=== PATIENT | female | born 1940 | race Caucasian/White ===

== ENCOUNTER 2018-01-16 21:45 | Outpatient (CLI) | payer MEDICARE | END 2018-01-16 21:46 | disposition critical access hospital (66) | LOC: EMS 21:45 | PROVIDERS: ATTEND Surgery | DX: M25.562 Pain in left knee (principal); M25.561 Pain in right knee; R53.1 Weakness; W18.39XA Other fall on same level, initial encounter; Y92.009 Unspecified place in unspecified non-institutional (private) residence as the place of occurrence of the external cause | CPT/HCPCS: A0425; A0429 ==

== ENCOUNTER 2018-01-16 21:53 | Emergency (ER) | payer MEDICARE ==
--- NOTE | 2018-01-16 23:15 | XRAY Report ---
Procedure Date: 01/16/2018 Accession Number: [id number] / [id number] Procedure: XR - Knee 2 View BILAT CPT Code: FULL RESULT: EXAMS: 1. Right Knee Radiography 2. Left Knee Radiography EXAM DATE:01/16/2018 10:30 PM. CLINICAL HISTORY:Fall, knee pain. COMPARISON: KNEE 3 VIEW RT 06/09/2015. TECHNIQUE: 2 views each. FINDINGS: Right Knee: Bones: Normal. No fractures or bone lesions. Joints: Moderate narrowing of the patellofemoral and medial joint compartments. There is associated marginal spurring. No joint effusion. Soft Tissues: Normal. No soft tissue swelling. Left Knee: Bones: Normal. No fractures or bone lesions. Joints: Mild patellofemoral and medial compartment joint space narrowing. Normal alignment and no joint effusion. Soft Tissues: Normal. No soft tissue swelling. IMPRESSION: 1. No acute bony abnormality. 2. Moderate right and mild left knee osteoarthritis. [facility]
--- NOTE | 2018-01-16 23:27 | CT Report ---
Procedure Date: 01/16/2018 Accession Number: [id number] / [id number] Procedure: CT - Head W/O CPT Code: FULL RESULT: EXAM: CT HEAD EXAM DATE: 01/16/2018. CLINICAL HISTORY: Fall, on aspirin,. COMPARISON: Head CT 01/01/2016. TECHNIQUE: Multiaxial CT images were obtained from the foramen magnum to the vertex. Reformats: Coronal. IV contrast: None. In accordance with CT protocol optimization, one or more of the following dose reduction techniques were utilized for this exam: automated exposure control, adjustment of mA and/or KV based on patient size, or use of iterative reconstructive technique. FINDINGS: Parenchyma: No intraparenchymal hemorrhage. No evidence of mass, midline shift, or CT findings of acute infarction. Weathers-white differentiation is distinct. Diffuse chronic microangiopathic white matter changes are evident. Extraaxial Spaces: Normal for age. No subdural or epidural collections identified. Ventricles: The ventricles and cortical sulci are enlarged, consistent with age-related tissue loss. Sinuses and orbits: Imaged paranasal sinuses, orbits, and mastoids show no significant abnormality. Bones: No evidence of fracture or calvarial defect. Other: None. IMPRESSION: Generalized age-related cortical atrophic changes without evidence of acute intracranial abnormality. [facility]
--- NOTE | 2018-01-16 23:35 | ED Physician Documentation ---
PD HPI Fall - Stated complaint Stated Complaint: GLF - Chief complaint Chief Complaint: Trauma Hd/Nk - History obtained from History obtained from: Patient, EMS - History of Present Illness Mechanism of injury: Tripped Fall distance: Standing position Where injury occurred: Home Timing - onset: Today Injury(ies) location: Head, Left Uppper Extremity, Right Lower Extremity Associated symptoms: No: LOC, AMS Similar symptoms before: No diagnosis Recently seen: Not recently seen - Additional information Additional information: Patient is a 77 year old female who is presenting to the emergency department after falling. patient states that she was in her kitchen when she feel foward on her knees and hit her head (patient is on aspirin). Patient states that she has bad knees and could not get herself up. patient was able to sit on the ground and wait for her son in law to get home. patient is complaining of bilateral knee pain. 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 HEENT: Tonsil/Adenoidectomy - Present Medications Home Medications: Ambulatory Orders Medication Instructions Recorded Confirmed Gemfibrozil [Lopid] 600 mg PO BIDAC 06/09/15 01/01/16 Glipizide 10 mg PO BID 06/09/15 01/01/16 Insulin Glargine,Hum.rec.anlog 21 unit SQ ACHS 06/09/15 01/01/16 [Lantus] Lisinopril 20 mg PO BID 06/09/15 01/01/16 Metoprolol Tartrate 50 mg PO BID 06/09/15 01/01/16 amLODIPine [Norvasc] 10 mg PO DAILY 06/09/15 01/01/16 hydroCHLOROthiazide 12.5 mg PO DAILY 06/09/15 01/01/16 [Hydrochlorothiazide] metFORMIN [Glucophage] 1,000 mg PO BIDWM 06/09/15 01/01/16 oxyCODONE [Roxicodone] 5 mg PO Q4-6H #20 tablet 06/09/15 01/01/16 Nitrofurantoin [Macrobid] 100 mg PO BID #10 capsule 12/30/15 01/01/16 - Allergies Allergies/Adverse Reactions: Allergies Allergy/AdvReac Type Severity Reaction Status Date / Time hops Allergy Unknown Verified 01/16/18 22:13 Penicillins Allergy Unknown Verified 01/16/18 22:13 - Social History Does the pt smoke?: No Smoking Status: Never smoker Does the pt drink ETOH?: No Does the pt have substance abuse?: No - Immunizations Immunizations are current?: No Immunizations: TDAP >10years/unknown - POLST Patient has POLST: No PD ED PE NORMAL - Vitals Vital signs reviewed: Yes - General General: Alert and oriented X 3, No acute distress - Cardiac Cardiac: RRR - Respiratory Respiratory: No respiratory distress - Abdomen Abdomen: Soft - Derm Derm: Normal color - Neuro Neuro: Alert and oriented X 3, 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-12 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, No motor deficit, Normal speech Eye Opening: Spontaneous Motor: Obeys Commands Verbal: Oriented GCS Score: 15 PD ED PE EXPANDED - HEENT HEENT: Head injury (small hematoma on right anterior forehead) - Extremities Extremities: Right knee, Left knee (bilateral knee pain, no ecchymosis no swelling) Results - Vitals Vitals: Vital Signs - 24 hr 01/16/18 21:52 Temperature 36.7 C Heart Rate 80 Respiratory 18 Rate Blood Pressure 160/92 H O2 Saturation 95 Oxygen O2 Source Room air - Rads (name of study) ct head Radiology: Final report received (no acute intracranial pathology) bilateral knees Radiology: Final report received (no acute fracture or dislocation) PD MEDICAL DECISION MAKING - ED course Complexity details: reviewed old records, reviewed results, re-evaluated patient , considered differential, d/w patient, d/w family ED course: Patient was seen and examined at bedside. patient was on aspirin and had head trauma. imaging was ordered. when patient returned from imaging the results were reviewed. there were no fractures or dislocations. there was no acute intracranial pathology. Patient required no further work up and was stable for discharge with outpatient followup. - Sepsis Event Vital Signs: Vital Signs - 24 hr 01/16/18 21:52 Temperature 36.7 C Heart Rate 80 Respiratory 18 Rate Blood Pressure 160/92 H O2 Saturation 95 Oxygen O2 Source Room air Departure - Departure Disposition: 01 Home, Self Care Clinical Impression: Fall Condition: Good Instructions: ED Contusion Lower Ext Follow-Up: Clarice Miranda MD [Primary Care Provider] - As Needed Comments: Your diagnostics today were within normal limits. there are no acute fractures dislocations or intercerebral pathology. You should ice your knees and take motrin or tylenol as needed for pain. you should follow up with your doctor if your symptoms persist. you may return to the emergency department at any time for new, worsening or uncontrollable symptoms.
[2018-01-17 02:57] VITALS: BP 114/73
== END 2018-01-16 23:45 | disposition home or self-care (01) ==
LOC: EDUNIT# → ED 21:53
DX: S00.83XA Contusion of other part of head, initial encounter (principal); S80.12XA Contusion of left lower leg, initial encounter; S80.11XA Contusion of right lower leg, initial encounter; W01.198A Fall on same level from slipping, tripping and stumbling with subsequent striking against other object, initial encounter; Y92.000 Kitchen of unspecified non-institutional (private) residence as the place of occurrence of the external cause; Z79.82 Long term (current) use of aspirin
CPT/HCPCS: 70450; 73565; 99283

== ENCOUNTER 2018-07-05 09:43 | Outpatient (CLI) | payer MEDICARE | END 2018-07-05 09:44 | disposition home or self-care (01) | LOC: NS 09:43 | PROVIDERS: ATTEND Internal Medicine | DX: Z71.3 Dietary counseling and surveillance (principal); E11.9 Type 2 diabetes mellitus without complications | CPT/HCPCS: 97802 ==

== ENCOUNTER 2018-07-26 09:38 | Outpatient (CLI) | payer MEDICARE | END 2018-07-26 09:39 | disposition home or self-care (01) | LOC: NS 09:38 | PROVIDERS: ATTEND Internal Medicine | DX: Z71.3 Dietary counseling and surveillance (principal); E11.9 Type 2 diabetes mellitus without complications; Z68.32 Body mass index [BMI] 32.0-32.9, adult | CPT/HCPCS: 97803 ==

== ENCOUNTER 2018-12-17 22:01 | Emergency (ER) | payer MEDICARE ==
[2018-12-17 22:11] VITALS: BP 145/79
--- NOTE | 2018-12-17 22:16 | ED Physician Documentation ---
PD HPI FEMALE - Stated complaint Stated Complaint: FEMALE /SORE - Chief complaint Chief Complaint: UTI - History obtained from History obtained from: Patient - History of Present Illness Timing - onset: Today, Yesterday Timing - duration: Days (1-2) Timing - details: Abrupt onset, Still present Associated symptoms: Dysuria, Urinary frequency. No: Fever, Vaginal pain, Vaginal discharge Similar symptoms before: Diagnosis (UTI remotely in the past) Recently seen: Not recently seen Review of Systems Constitutional: denies: Fever, Chills, Myalgias GI: denies: Nausea, Vomiting, Diarrhea : reports: Dysuria, Frequency. 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 HEENT: Tonsil/Adenoidectomy - Present Medications Home Medications: Ambulatory Orders Medication Instructions Recorded Confirmed Gemfibrozil [Lopid] 600 mg PO BIDAC 06/09/15 12/17/18 Glipizide 10 mg PO BID 06/09/15 12/17/18 Insulin Glargine,Hum.rec.anlog 10 unit SQ ACHS 06/09/15 12/17/18 [Lantus] Lisinopril 20 mg PO BID 06/09/15 12/17/18 Metoprolol Tartrate 50 mg PO BID 06/09/15 12/17/18 amLODIPine [Norvasc] 10 mg PO DAILY 06/09/15 12/17/18 hydroCHLOROthiazide 12.5 mg PO DAILY 06/09/15 12/17/18 [Hydrochlorothiazide] metFORMIN [Glucophage] 1,000 mg PO BIDWM 06/09/15 12/17/18 Cephalexin [Keflex] 500 mg PO TID #15 capsule 12/17/18 - Allergies Allergies/Adverse Reactions: Allergies Allergy/AdvReac Type Severity Reaction Status Date / Time hops Allergy Unknown Verified 12/17/18 22:11 Penicillins Allergy Unknown Verified 12/17/18 22:11 - Social History Does the pt smoke?: No Smoking Status: Never smoker Does the pt drink ETOH?: No Does the pt have substance abuse?: No - Immunizations Immunizations are current?: No Immunizations: TDAP >10years/unknown - POLST Patient has POLST: No PD ED PE NORMAL - Vitals Vital signs reviewed: Yes - General General: Alert and oriented X 3, No acute distress, Well developed/nourished - Abdomen Abdomen: Soft, Non tender - Female Female : Deferred - Back Back: No CVA TTP - Derm Derm: Normal color, Warm and dry Results - Vitals Vitals: Oxygen O2 Source Room air - Labs Labs: Microbiology 12/17/18 22:17 Urine Culture - Final Urine,Clean Catch >100,000 COLONIES/ML Polymicrobial growth including potential pathogens. This is suggestive of skin or other contamination. Laboratory Tests 12/17/18 22:17 Urine Color YELLOW Urine Clarity HAZY Urine pH 6.5 Ur Specific [place] 1.015 Urine Protein 30 H Urine Glucose (UA) >=1000 H Urine Ketones NEGATIVE Urine Occult Blood TRACE-INTA Urine Nitrite NEGATIVE Urine Bilirubin NEGATIVE Urine Urobilinogen 1 (NORMAL) Ur Leukocyte Esterase MODERATE H Urine RBC 6-10 H Urine WBC >25 H Ur Squamous Epith Cells RARE Squamous Urine Bacteria Many H Ur Microscopic Review INDICATED Urine Culture Comments INDICATED PD MEDICAL DECISION MAKING - ED course Complexity details: reviewed results (UA c/w symtpoms of cystitis), considered differential, d/w patient Departure - Departure Disposition: 01 Home, Self Care Clinical Impression: Cystitis, Dysuria Condition: Stable Record reviewed to determine appropriate education?: Yes Instructions: ED UTI Cystitis Female Follow-Up: Clarice Miranda MD [Primary Care Provider] - Prescriptions: Cephalexin [Keflex] 500 mg PO TID #15 capsule Comments: Your urine does look like a urinary infection. We will treated with cephalexin 3 times a day for 5 days. Recheck if not feeling improved during the next few days. Return if worsening symptoms fever vomiting or other concerns. Discharge Date/Time: 12/17/18 23:00
[2018-12-17 22:29] LABS: BILIRUBIN,URINE NEGATIVE (NEGATIVE); GLUCOSE, URINE (UA) >=1000 mg/dL (NEGATIVE); KETONES,URINE (UA) NEGATIVE (NEGATIVE); LEUKOCYTE ESTERASE, URINE MODERATE (NEGATIVE); NITRITE,URINE NEGATIVE (NEGATIVE); OCCULT BLOOD,URINE TRACE-INTA (NEGATIVE); PH,URINE 6.5 PH (5.0-7.5); PROTEIN,URINE 30 mg/dL (NEGATIVE); UROBILINOGEN,URINE 1 (NORMAL) E.U./dL (NORMAL)
[2018-12-17 22:32] LABS: CLARITY,URINE HAZY (CLEAR)
[2018-12-17 22:33] LABS: BACTERIA,URINE Many /HPF (None Seen); SQUAMOUS EPITHELIAL CELL,UR RARE Squamous (<= Few)
[2018-12-17] MEDS ORDERED: FLUCONAZOLE 100 MG TABLET PO STA (22:37)
[2018-12-17] MEDS ORDERED: cephALEXin 250 MG CAPSULE PO STA (22:37)
== END 2018-12-17 23:00 | disposition home or self-care (01) ==
LOC: ED 22:01
DX: N30.90 Cystitis, unspecified without hematuria (principal); I10 Essential (primary) hypertension; E11.9 Type 2 diabetes mellitus without complications; M19.90 Unspecified osteoarthritis, unspecified site; Z79.4 Long term (current) use of insulin
CPT/HCPCS: 81001; 87086; 99283; A9270; 81003

== ENCOUNTER 2019-02-08 08:21 | Emergency (ER) | payer MEDICARE ==
--- NOTE | 2019-02-08 10:10 | ED Physician Documentation ---
PD HPI HEAD INJURY - Stated complaint Stated Complaint: GLF - Chief complaint Chief Complaint: General - History obtained from History obtained from: Patient, Family - History of Present Illness Mechanism of head injury: Fell Where head injury occurred: Home Timing - onset: Today Location of injury: Back Quality of pain: Pain Associated symptoms: Paresthesias (right facial). No: LOC, AMS, Amnesia, Nausea / vomiting, Neck pain Symptoms improve with: Rest Symptoms worsen with: Palpation, Movement Contributing factors: No: Anticoagulated Similar symptoms before: Has not had sx before Recently seen: Not recently seen - Additional information Additional information: 78-year-old female with a history of type 2 diabetes and hypertension has had a fall in her home today falling directly backwards onto the back of her head. This verna her quite a bit she did not get short of air and she did not get knocked out she has some pain to the occiput she is developed some tingling to the right side of her face she denies any numbness or tingling elsewhere she denies any pain elsewhere she denies any pain in her neck she does have some pain in the right scapula. She has not been otherwise ill she does have urinary frequency normally. Review of Systems Constitutional: denies: Fever Eyes: denies: Decreased vision Ears: denies: Ear pain Nose: denies: Rhinorrhea / runny nose, Congestion Throat: denies: Sore throat Cardiac: denies: Chest pain / pressure, Palpitations Respiratory: denies: Dyspnea, Cough GI: denies: Abdominal Pain, Nausea, Vomiting : reports: Frequency. denies: Dysuria Skin: denies: Rash Musculoskeletal: reports: Extremity swelling. 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 HEENT: Tonsil/Adenoidectomy - Present Medications Home Medications: Ambulatory Orders Medication Instructions Recorded Confirmed Gemfibrozil [Lopid] 600 mg PO BIDAC 06/09/15 12/17/18 Glipizide 10 mg PO BID 06/09/15 12/17/18 Insulin Glargine,Hum.rec.anlog 20 unit SQ DAILY PM 06/09/15 12/17/18 [Lantus] Lisinopril 20 mg PO BID 06/09/15 12/17/18 Metoprolol Tartrate 50 mg PO BID 06/09/15 12/17/18 amLODIPine [Norvasc] 10 mg PO DAILY 06/09/15 12/17/18 hydroCHLOROthiazide 12.5 mg PO DAILY 06/09/15 12/17/18 [Hydrochlorothiazide] metFORMIN [Glucophage] 1,000 mg PO BIDWM 06/09/15 12/17/18 Sulfamethoxazole/Trimethoprim 1 each PO BID #14 tablet 02/08/19 [Sulfamethoxazole-Tmp Ds Tablet] - Allergies Allergies/Adverse Reactions: Allergies Allergy/AdvReac Type Severity Reaction Status Date / Time hops Allergy Unknown Verified 02/08/19 08:54 Penicillins Allergy Unknown Verified 02/08/19 08:54 - Social History Does the pt smoke?: No Smoking Status: Never smoker Does the pt drink ETOH?: No Does the pt have substance abuse?: No - Immunizations Immunizations are current?: No Immunizations: TDAP >10years/unknown - POLST Patient has POLST: No PD ED PE NORMAL - Vitals Vital signs reviewed: Yes (hypertensive mild ) - General General: Alert and oriented X 3, No acute distress, Well developed/nourished - HEENT HEENT: PERRL, EOMI, Ears normal, Moist mucous membranes, Other (There is tendernes swelling and abrasion to the occiput on the left side. ) - Neck Neck: Supple, no meningeal sign, No bony TTP - Cardiac Cardiac: RRR, No murmur - Respiratory Respiratory: No respiratory distress, Clear bilaterally, Other (There is tenderness to the right scapula over the tip of the scapula. ) - Abdomen Abdomen: Soft, Non tender - Back Back: No CVA TTP, No spinal TTP - Derm Derm: Normal color, Warm and dry, No rash - Extremities Extremities: No deformity, Other (edema bilat) - Neuro Neuro: Alert and oriented X 3, crown wheel assembler 2-12 intact, No motor deficit, No sensory deficit, Normal speech Eye Opening: Spontaneous Motor: Obeys Commands Verbal: Oriented GCS Score: 15 - Psych Psych: Normal mood, Normal affect Results - Vitals Vitals: Vital Signs - 24 hr 08/04/1902/08/19 02/08/19 08:52 10:51 12:56 Temperature 36.8 C Heart Rate 66 87 71 Respiratory 16 17 12 Rate Blood Pressure 138/68 H 150/75 H 121/69 O2 Saturation 98 96 96 Oxygen O2 Source Room air - Labs Labs: Laboratory Tests 02/08/19 02/08/19 02/08/19 10:50 11:30 11:30 WBC 6.7 RBC 4.01 L Hgb 12.9 Hct 39.7 MCV 99.0 MCH 32.2 H MCHC 32.5 RDW 12.7 Plt Count 220 MPV 11.0 H Neut # (Auto) 4.9 Lymph # (Auto) 1.4 L [place] # (Auto) 0.3 Eos # (Auto) 0.1 Baso # (Auto) 0.0 Absolute Nucleated RBC 0.00 Nucleated RBC % 0.0 Sodium 140 Potassium 3.5 Chloride 103 Carbon Dioxide 25 Anion Gap 12.0 BUN 26 H Creatinine 0.9 Estimated GFR (MDRD) 61 L Glucose 221 H Calcium 8.7 Total Bilirubin 0.5 AST 14 ALT 13 Alkaline Phosphatase 90 Total Protein 8.4 H Albumin 3.3 Globulin 5.1 H Albumin/Globulin Ratio 0.6 L Lipase 39 Urine Color LT. YELLOW Urine Clarity CLEAR Urine pH 6.5 Ur Specific [place] 1.015 Urine Protein NEGATIVE Urine Glucose (UA) 500 H Urine Ketones NEGATIVE Urine Occult Blood NEGATIVE Urine Nitrite NEGATIVE Urine Bilirubin NEGATIVE Urine Urobilinogen 0.2 (NORMAL) Ur Leukocyte Esterase MODERATE H Urine RBC 0-5 Urine WBC 6-10 H Ur Squamous Epith Cells MOD Squamous H Urine Bacteria Moderate H Ur Microscopic Review INDICATED Urine Culture Comments NOT INDICATED - Rads (name of study) CT Head w/o Radiology: Prelim report reviewed (Impression: Multiple areas of small extra- axial/subdural hemorrhage appreciated. The largest focus is biconvex in appearance posterior to the cerebellum just to the right of midline measuring 22 x 16 in diameter by 6 mm in thickness. No overlying skull fracture to suggest epidural hemorrhage in this location. Thin subdural hemorrhage is seen along the left aspect of the tentorium and small focus in the left parafalcine region at the paracentral lobule level. 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 Cystic focus in the right lymph lentiform nucleus consistent with old lacunar infarcts. Moderate white matter hypodensity is seen throughout the cerebral hemispheres. This is nonspecific. This can be seen secondary to small vessel ischemic change or sequela of chronic hypertensive encephalopathy.), EMP read indepedently, See rad report CT cervical spine w/o Radiology: Prelim report reviewed (Impression: 1. No definite acute fracture or malalignment. 2 Multilevel cervical degeneration. 3 Posterior fossa intracranial hemorrhage better evaluated on separately dictated head CT performed concurrently.), EMP read indepedently, See rad report CT head f/u Radiology: Prelim report reviewed (Impression: 1. Overall stable exam, with moderate senescent changes and subdural hematomas, dominant measuring up to 20 mm in the posterior fossa, with stable parasagittal hematoma measuring up to 2 mm at the vertex.), EMP read indepedently, See rad report PD MEDICAL DECISION MAKING - ED course Complexity details: reviewed old records, reviewed results, re-evaluated patient, considered differential, d/w patient, d/w family ED course: 78-year-old female with a ground-level fall hitting the back of her head is not on anticoagulants and she does have intracranial hemorrhage. She has 2 small subdural hematomas. Her case is reviewed with Dr. Jerry Chin, neurosurgeon on- call at [facility] he has reviewed the patient's films and recommends a 4-hour repeat CT scan and a follow-up scan at 1 month. The patient is stable for discharge to home with a family member. Departure - Departure Disposition: 01 Home, Self Care Clinical Impression: Subdural hematoma due to concussion Qualifiers: Encounter type: initial encounter Loss of consciousness presence/duration: without LOC Qualified Code(s): S06.5X0A - Traumatic subdural hemorrhage without loss of consciousness, initial encounter UTI (urinary tract infection) Qualifiers: Urinary tract infection type: acute cystitis Hematuria presence: without hematuria Qualified Code(s): N30.00 - Acute cystitis without hematuria Condition: Stable Instructions: ED Head Injury Closed, Hematoma Subdural Follow-Up: Clarice Miranda MD [Primary Care Provider] - Prescriptions: Sulfamethoxazole/Trimethoprim [Sulfamethoxazole-Tmp Ds Tablet] 1 each PO BID #14 tablet
--- NOTE | 2019-02-08 11:03 | CT Report ---
Reason: fall head injury right facial numbness Procedure Date: 02/08/2019 Accession Number: [id number] / [id number] Procedure: CT - HEAD WO CPT Code: FULL RESULT: EXAM: CT HEAD EXAM DATE: 02/08/2019 10:24 AM. CLINICAL HISTORY: Fall head injury right facial numbness. COMPARISON: CERVICAL SPINE W/O 02/08/2019 10:24 AM. TECHNIQUE: Multiaxial CT images were obtained from the foramen magnum to the vertex. Reformats: Sagittal and coronal. IV contrast: None. In accordance with CT protocol optimization, one or more of the following dose reduction techniques were utilized for this exam: automated exposure control, adjustment of mA and/or KV based on patient size, or use of iterative reconstructive technique. FINDINGS: Parenchyma: No intraparenchymal hemorrhage. No evidence of mass, midline shift, or CT findings of infarction. Weathers-white differentiation is distinct. Patchy area of cystic encephalomalacia is seen involving the posterior inferior left cerebellum. Moderately extensive white matter hypodensity is seen throughout the cerebral hemispheres bilaterally. An oval 8 mm cystic focus is seen in the right lentiform nucleus. Extraaxial Spaces: Normal for age. There is mild thickening and hyperdense appearance to the left leaf of the tentorium consistent with thin subdural hematoma. This measures up to 2 mm in thickness. Similar appearing lobular hyperdense focus is seen in the left parafalcine falx at the level of the paracentral lobule. This measures up to approximately 10 mm in diameter and 2.4 mm in thickness. An oval circumscribed hyperdense collection is seen in the posterior fossa deep to the occipital bone just to the right of midline. This measures 23 x 16 mm in diameter and up to 6 mm in thickness. No overlying skull fracture is appreciated. No definite subarachnoid hemorrhage is appreciated. Ventricles: No hydrocephalus. No intraventricular hemorrhage is noted. Sinuses and Orbits: Imaged paranasal sinuses, orbits, and mastoids show no significant abnormality. Bones: No evidence of fracture or calvarial defect. Other: Mild to moderate vascular calcification is seen involving intracranial ICA and vertebral arteries. IMPRESSION: 1. Multiple areas of small extraaxial/subdural hemorrhage appreciated. The largest focus is biconvex in appearance posterior to the cerebellum just to the right of midline measuring 22 x 16 mm in diameter and 6 mm in thickness. No overlying skull fracture is seen to suggest epidural hemorrhage in this location. Thin subdural hemorrhage is seen along the left aspect of the tentorium and small focus in the left parafalcine region at the paracentral lobule level. 2. 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 Cystic focus in the right lentiform nucleus consistent with old lacunar infarcts. Moderate white matter hypodensity is seen throughout the cerebral hemispheres. This is nonspecific. This can be seen secondary to small vessel ischemic change or sequela of chronic hypertensive encephalopathy. [facility] The call report notification system was initiated by Dr. Alf Melendrez at 10:52 AM on 02/08/2019. The above call report findings were discussed with Dr. Eugene Shaffer by Dr. Alf Melendrez at 11:01 AM on 02/08/2019.
--- NOTE | 2019-02-08 11:06 | XRAY Report ---
Reason: fall pain to tip of scapula Procedure Date: 02/08/2019 Accession Number: [id number] / [id number] Procedure: XR - Scapula 2 View RT CPT Code: FULL RESULT: EXAM: RIGHT SCAPULA RADIOGRAPHY EXAM DATE: 02/08/2019 10:42 AM. CLINICAL HISTORY: Back/shoulder pain post fall. COMPARISON: None. TECHNIQUE: 2 views. FINDINGS: Bones: There is mild cortical irregularity noted about the scapular tip. Nondisplaced fracture cannot be excluded. Joints: The glenohumeral and acromioclavicular joints are normal and without subluxation. Other: The visualized hemithorax is unremarkable. IMPRESSION: Mild cortical irregularity noted about the scapular tip suggestive of nondisplaced fracture. [facility]
[2019-02-08 11:08] LABS: BILIRUBIN,URINE NEGATIVE (NEGATIVE); GLUCOSE, URINE (UA) 500 mg/dL (NEGATIVE); KETONES,URINE (UA) NEGATIVE (NEGATIVE); LEUKOCYTE ESTERASE, URINE MODERATE (NEGATIVE); NITRITE,URINE NEGATIVE (NEGATIVE); OCCULT BLOOD,URINE NEGATIVE (NEGATIVE); PH,URINE 6.5 PH (5.0-7.5); PROTEIN,URINE NEGATIVE (NEGATIVE); UROBILINOGEN,URINE 0.2 (NORMAL) E.U./dL (NORMAL)
[2019-02-08 11:09] LABS: CLARITY,URINE CLEAR (CLEAR)
[2019-02-08 11:22] LABS: BACTERIA,URINE Moderate /HPF (None Seen); RBC,URINE 0-5 /HPF (0-5); SQUAMOUS EPITHELIAL CELL,UR MOD Squamous (<= Few)
[2019-02-08 11:36] LABS: BASOPHILS % (AUTO) 0.4 %; EOSINOPHILS # (AUTO) 0.1 10^3/uL (0.0-0.7); EOSINOPHILS % (AUTO) 1.2 %; HGB - HEMOGLOBIN 12.9 g/dL (12.0-16.0); LYMPHOCYTES # (AUTO) 1.4 10^3/uL (1.5-3.5); LYMPHOCYTES % (AUTO) 20.8 %; MEAN CORPUSCULAR HEMOGLOBIN 32.2 pg (27.0-31.0); MEAN CORPUSCULAR HGB CONC 32.5 g/dL (32.0-36.0); MONOCYTES # (AUTO) 0.3 10^3/uL (0.0-1.0); NEUTROPHILS # (AUTO) 4.9 10^3/uL (1.5-6.6); PLT - PLATELET COUNT 220 10^3/uL (130-450); RED BLOOD COUNT 4.01 10^6/uL (4.20-5.40); RED CELL DISTRIBUTION WIDTH 12.7 % (12.0-15.0); WHITE BLOOD COUNT 6.7 x10^3/uL (4.8-10.8)
[2019-02-08 11:57] LABS: ALBUMIN 3.3 g/dL (3.2-5.5); ALBUMIN/GLOBULIN RATIO 0.6 (1.0-2.2); BILIRUBIN,TOTAL 0.5 mg/dL (0.2-1.0); CALCIUM 8.7 mg/dL (8.5-10.3); CREATININE 0.9 mg/dL (0.4-1.0); TOTAL PROTEIN 8.4 g/dL (6.7-8.2)
--- NOTE | 2019-02-08 12:21 | CT Report ---
Reason: fall headinjury Procedure Date: 02/08/2019 Accession Number: [id number] / [id number] Procedure: CT - CERVICAL SPINE WO CPT Code: FULL RESULT: EXAM: CT CERVICAL SPINE WITHOUT CONTRAST DATE: 02/08/2019 10:36 AM. HISTORY: Fall headinjury. COMPARISONS: HEAD W/O 01/16/2018 10:18 PM HEAD W/O 02/08/2019 10:24 AM CERVICAL SPINE W/O 02/08/2019 10:24 AM HEAD ANGIO 01/01/2016 11:50 AM. TECHNIQUE: Thin-section axial images were acquired of the cervical spine without contrast. Post-processing: Coronal and sagittal reformats. Other: None. In accordance with CT protocol optimization, one or more of the following dose reduction techniques were utilized for this exam: automated exposure control, adjustment of mA and/or KV based on patient size, or use of iterative reconstructive technique. FINDINGS: Alignment: Mild generalized reversal of the normal mid to upper cervical lordosis may be positional, degenerative, and are related to muscular spasm. Alignment is otherwise normal. Bones: No acute fracture or suspicious bony lesion. Stable chronic anterior superior endplate irregularity at C5. Interspace Levels/Facets: Moderate multilevel cervical disk degeneration most pronounced at the atlantodens articulation and at C5-C6 and C6-C7. Mild to moderate multilevel facet degeneration most pronounced at the mid to lower cervical levels. Asymmetric broad-based disk osteophyte complex with prominent right paracentral/foraminal component at C5-C6 contributes to mild central narrowing, moderate-severe bilateral neural foraminal narrowing, right greater than left. There is additionally multifactorial mild central narrowing at C6-C7 with moderate left and mild-moderate right neural foraminal narrowing at this level. Musculature: Normal. No fatty atrophy. Other: The paravertebral and prevertebral soft tissues are unremarkable. The lung apices are clear. Posterior fossa intracranial hemorrhage better evaluated on separately dictated head CT performed concurrently. IMPRESSION: 1. No definite acute fracture or malalignment. 2. Multilevel cervical degeneration. 3. Posterior fossa intracranial hemorrhage better evaluated on separately dictated head CT performed concurrently. RADIA
[2019-02-08] MEDS ORDERED: SODIUM CHLORIDE 0.9% 1,000 ML IV ONE (12:58)
[2019-02-08] MEDS ORDERED: cefTRIAXone 1 GM in SODIUM CHLORIDE 0.9% MINIBAG 100 ML IV STA (12:58)
--- NOTE | 2019-02-08 15:01 | CT Report ---
Reason: F/u 4 hr scan Procedure Date: 02/08/2019 Accession Number: [id number] / [id number] Procedure: CT - HEAD WO CPT Code: FULL RESULT: EXAM: CT HEAD EXAM DATE: 02/08/2019 02:27 PM. CLINICAL HISTORY: Intracranial hemorrhage, follow-up. COMPARISON: Previous exam of the same date at 10:24 AM. TECHNIQUE: Multiaxial CT images were obtained from the foramen magnum to the vertex. Reformats: Sagittal and coronal. IV contrast: None. In accordance with CT protocol optimization, one or more of the following dose reduction techniques were utilized for this exam: automated exposure control, adjustment of mA and/or KV based on patient size, or use of iterative reconstructive technique. FINDINGS: Parenchyma: Stable encephalomalacia are seen about the left lower cerebellum. Moderate periventricular hypoattenuation seen. Hypoattenuation seen about the right basal ganglia. Extraaxial Spaces: Mild atrophy is present. Stable appearance of subdural hematomas, dominant in the posterior fossa spanning up to 20 mm. Stable appearance of parasagittal subdural hematoma at the vertex measuring up to 2 mm. Ventricles: Normal in size and position. Sinuses and Orbits: Imaged paranasal sinuses, orbits, and mastoids show no significant abnormality. Bones: No evidence of fracture or calvarial defect. Other: None. IMPRESSION: 1. Overall stable exam, with moderate senescent changes and subdural hematomas, dominant measuring up to 20 mm in the posterior fossa, with stable parasagittal hematoma measuring up to 2 mm at the vertex. [facility]
[2019-02-08 15:19] VITALS: BP 138/65
== END 2019-02-08 15:55 | disposition home or self-care (01) ==
LOC: ED 08:21
DX: S06.5X0A Traumatic subdural hemorrhage without loss of consciousness, initial encounter (principal); S49.91XA Unspecified injury of right shoulder and upper arm, initial encounter; W18.30XA Fall on same level, unspecified, initial encounter; Y92.009 Unspecified place in unspecified non-institutional (private) residence as the place of occurrence of the external cause; N30.00 Acute cystitis without hematuria; M50.30 Other cervical disc degeneration, unspecified cervical region; E11.9 Type 2 diabetes mellitus without complications; Z79.4 Long term (current) use of insulin; I10 Essential (primary) hypertension
CPT/HCPCS: 36415; 70450; 72125; 80053; 81001; 81003; 83690; 85025; 87086; 96365; 96366; 99284

== ENCOUNTER 2020-10-18 09:08 | Emergency (ER) | payer MEDICARE ==
[2020-10-18] MEDS ORDERED: SULFAMETH/TRIMETH DS 800/160 MG TABLET PO STA (10:39)
--- NOTE | 2020-10-18 10:45 | CT Report ---
PROCEDURE: HEAD WO INDICATIONS: fall/pain TECHNIQUE: Noncontrast 4.5 mm thick angled axial sections acquired from the foramen magnum to the vertex. For r adiation dose reduction, the following was used: automated exposure control, adjustment of mA and/or kV according to patient size. COMPARISON: 02/08/2019 and 01/16/2018. FINDINGS: Image quality: Excellent. CSF spaces: Basal cisterns are patent. No extra-axial fluid collections. Ventricles are stable in size and shape. Brain: No midline shift. No acute intracranial hemorrhage. No mass or mass effect seen. Previously described subdural hematomas have resolved. There is a elliptical hypodense region in the right front al region (axial image 15, series 3) which is artifactual from volume averaging of a prominent sulcus . This was suggested on prior CT dated 2017. Stable appearance of encephalomalacia of the posterior l eft cerebellum. Moderate age-related senescent changes and sequela of chronic small vessel ischemic d isease also appears unchanged. Basal ganglia lacunar infarct is also unchanged. Weathers-white matter int erface is normal. Skull and face: Calvarium and visualized facial bones are intact, without suspicious lesions. Sinuses: Visualized sinuses and mastoids are clear. IMPRESSION: 1. CT head without acute intracranial abnormalities or acute calvarial fractures. 2. Moderate age related senescent changes as well as sequela of moderate chronic small vessel ischemi c disease. 3. Previously described subdural hematomas are no longer visualized. Reviewed by: Manuel Wood MD on 10/18/2020 9:44 AM [facility] Approved by: Manuel Wood MD on 10/18/2020 9:44 AM LE[facility] Station ID: [id number]
--- NOTE | 2020-10-18 11:05 | ED Physician Documentation ---
PD HPI HEAD INJURY - Stated complaint Stated Complaint: GLF/HEAD PX - Chief complaint Chief Complaint: Trauma Hd/Nk - History obtained from History obtained from: Patient - Additional information Additional information: Patient comes emergency department chief complaint of fall and left foot pain. Patient states she got "tangled up in her shoes" while she was walking and ended up tripping and falling forward. She bumped the front of her head in the process, but did not lose consciousness. Patient denies any injury to any other of her of her body during the fall, and was ultimately able to get herself up. The patient does not use any anticoagulants. The patient also complains of left foot pain for the last few days. She states that about 5 days ago, she is stubbed her toe and noticed some bruising. However, the area is now turned red and the redness seems to be spreading on her foot. Patient is a type II diabetic and has some baseline peripheral neuropathy involving the foot. No o ther complaints at this time. No fevers or chills. No pain anywhere else. Review of Systems Ten Systems: 10 systems reviewed and negative Constitutional: reports: Reviewed and negative Eyes: reports: Reviewed and negative Ears: reports: Reviewed and negative Nose: reports: Reviewed and negative Throat: reports: Reviewed and negative Cardiac: reports: Reviewed and negative Respiratory: reports: Reviewed and negative GI: reports: Reviewed and negative : reports: Reviewed and negative Skin: reports: Other (Redness.) Musculoskeletal: reports: Extremity pain, Extremity swelling Neurologic: reports: Head injury Psychiatric: reports: Reviewed and negative Endocrine: reports: Reviewed and negative Immunocompromised: reports: Reviewed and negative PD PAST MEDICAL HISTORY - Past Medical History Past Medical History: Yes Cardiovascular: Hypertension Endocrine/Autoimmune: Type 2 diabetes Musculoskeletal: Osteoarthritis - Past Surgical History Past Surgical History: Yes General: 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, Hysterectomy HEENT: Tonsil/Adenoidectomy - Present Medications Home Medications: Ambulatory Orders Medication Instructions Recorded Confirmed Insulin Glargine,Hum.rec.anlog 20 unit SQ DAILY PM 06/09/15 10/18/20 [Lantus] Lisinopril 20 mg PO BID 06/09/15 10/18/20 Metoprolol Tartrate 50 mg PO BID 06/09/15 10/18/20 amLODIPine [Norvasc] 10 mg PO DAILY 06/09/15 10/18/20 gemfibroziL [Lopid] 600 mg PO BIDAC 06/09/15 10/18/20 hydroCHLOROthiazide 12.5 mg PO DAILY 06/09/15 10/18/20 [Hydrochlorothiazide] metFORMIN [Glucophage] 1,000 mg PO BIDWM 06/09/15 10/18/20 Sulfamethox/Trimeth 800/160 1 each PO BID #14 tablet 10/18/20 [Bactrim Ds 800/160] - Allergies Allergies/Adverse Reactions: Allergies Allergy/AdvReac Type Severity Reaction Status Date / Time hops Allergy Unknown Verified 10/18/20 09:31 Penicillins Allergy Unknown Verified 10/18/20 09:31 - Social History Does the pt smoke?: No Smoking Status: Never smoker Does the pt drink ETOH?: No Does the pt have substance abuse?: No - Immunizations Immunizations are current?: Yes Immunizations: TDAP >10years/unknown - POLST Patient has POLST: No PD ED PE NORMAL - Vitals Vital signs reviewed: Yes - General General: Alert and oriented X 3, No acute distress, Well developed/nourished, Other (Patient is well-appearing and in no apparent distress.) - HEENT HEENT: Atraumatic, PERRL, EOMI, Moist mucous membranes - Neck Neck: Supple, no meningeal sign, No bony TTP - Cardiac Cardiac: RRR, No murmur, Strong equal pulses - Respiratory Respiratory: No respiratory distress, Clear bilaterally - Abdomen Abdomen: Soft, Non tender, Non distended - Back Back: No spinal TTP, Other (No posterior rib tenderness) - Derm Derm: Warm and dry, Other (Moderate erythema extending from the MTP joint of the great toe onto the adjacent dorsum of the left foot. Contusion noted over the left great toe, as well. Moderate edema.) - Extremities Extremities: No deformity, No calf tenderness / cord, Other (Moderate edema. Left great toe and distal adjacent left foot dorsum. No crepitus. No fluctuance or induration.) - Neuro Neuro: Alert and oriented X 3 - Psych Psych: Normal mood, Normal affect Results - Vitals Vitals: Vital Signs - 24 hr 10/18/20 10/18/20 10/18/20 09:31 09:48 11:11 Temperature 36.3 C L 36.2 C L Heart Rate 87 87 82 Respiratory 18 16 16 Rate Blood Pressure 128/65 129/70 152/89 H O2 Saturation 97 96 95 Oxygen O2 Source Room air - Rads (name of study) head CT Radiology: Final report received, EMP read indepedently, See rad report (neg) L foot Radiology: Final report received, EMP read indepedently, See rad report (neg) PD MEDICAL DECISION MAKING - ED course Complexity details: reviewed results, re-evaluated patient, considered differential, d/w patient ED course: Patient was worked up with CT scan of the head and x-ray of the left foot. Both studies were negative. The patient did appear to have cellulitis of her left foot, and as such, was started on Bactrim for this. She is instructed to follow-up with her primary care physician as needed. We have discussed the usual indications for return. Departure - Departure Disposition: 01 Home, Self Care Clinical Impression: Fall Qualifiers: Encounter type: initial encounter Qualified Code(s): W19.XXXA - Unspecified fall, initial encounter Closed head injury Qualifiers: Encounter type: initial encounter Qualified Code(s): S09.90XA - Unspecified injury of head, initial encounter Cellulitis Qualifiers: Site of cellulitis: extremity Site of cellulitis of extremity: lower extremity Laterality: left Qualified Code(s): L03.116 - Cellulitis of left lower limb Condition: Stable Instructions: ED Infec Skin Cellulitis, ED Head Injury Closed Prescriptions: Sulfamethox/Trimeth 800/160 [Bactrim Ds 800/160] 1 each PO BID #14 tablet Comments: The CT scan of your head looks good. You do not have any bleeding in the brain or fractures of your skull. The x-ray of your foot and toe also look good, with no evidence of broken bones. You most likely bruised the area, which can make you more likely to develop infection. Please take the antibiotics twice daily for 7 days, until all the pills are gone. You should prop your foot up if it is swelling or hurting. Please follow-up with your primary care physician as needed Discharge Date/Time: 10/18/20 11:19
--- NOTE | 2020-10-18 11:05 | XRAY Report ---
PROCEDURE: Foot 3 View LT INDICATIONS: injury/swelling/pain TECHNIQUE: 3 views of the foot were acquired. COMPARISON: None FINDINGS: Bones: No fractures or dislocations. No suspicious bony lesions. There is mild to moderate hallux valgus. Mild to moderate forefoot and midfoot joint osteoarthritic changes are seen. Well-defined jeanmarie ntar calcaneal enthesophyte is seen. Soft tissues: No tibiotalar joint effusion. Achilles tendon appears normal. Vascular calcification s are noted in posterior left ankle. IMPRESSION: No acute left foot fracture or dislocation. Mild to moderate midfoot and forefoot joint osteoarthriti s. Well-defined plantar calcaneal enthesophyte. Reviewed by: Mukund Barrientos MD on 10/18/2020 11:04 AM PDT Approved by: Mukund Barrientos MD on 10/18/2020 11:04 AM PDT Station ID: [id number]
[2020-10-18 11:14] VITALS: BP 152/89
== END 2020-10-18 11:19 | disposition home or self-care (01) ==
LOC: ED 09:08
DX: S09.90XA Unspecified injury of head, initial encounter (principal); W01.0XXA Fall on same level from slipping, tripping and stumbling without subsequent striking against object, initial encounter; L03.116 Cellulitis of left lower limb; E11.42 Type 2 diabetes mellitus with diabetic polyneuropathy; I10 Essential (primary) hypertension; Z79.4 Long term (current) use of insulin; Z79.899 Other long term (current) drug therapy
CPT/HCPCS: 70450; 73630; 99284; A9270

== ENCOUNTER 2020-11-11 15:37 | Outpatient (CLI) | payer MEDICARE | END 2020-11-11 15:38 | disposition EMS.NT | LOC: EMS 15:37 | DX: S09.93XA Unspecified injury of face, initial encounter (principal); W01.198A Fall on same level from slipping, tripping and stumbling with subsequent striking against other object, initial encounter; Y93.01 Activity, walking, marching and hiking; Y92.096 Garden or yard of other non-institutional residence as the place of occurrence of the external cause ==

== ENCOUNTER 2022-04-19 08:00 | Outpatient (CLI) | payer MEDICARE ==
[2022-04-19 15:46] LABS: CALCIUM 8.6 mg/dL (8.5-10.3); POTASSIUM 3.7 mmol/L (3.5-5.0)
[2022-04-19 20:06] LABS: ESTIMATED AVERAGE GLUCOSE 154 mg/dL (70-100)
== END 2022-04-19 23:59 | disposition home or self-care (01) ==
LOC: LAB.R 08:00
PROVIDERS: ATTEND Internal Medicine
DX: E11.9 Type 2 diabetes mellitus without complications (principal)
CPT/HCPCS: 80048; 82607; 83036

== ENCOUNTER 2022-06-08 06:01 | Day surgery (SDC) | payer MEDICARE ==
[~2022-06-08 06:01] MED LIST: CYCLOPENTOLATE 1% OPHTH DROPS 2 ML ONE; KETOROLAC 0.45% OPHTH DROPS ONE; PHENYLEPHRINE 2.5% OPHTH 2 ML DROPS ONE; PROPARACAINE 0.5% OPHTH DROPS 15 ML ONE
[2022-06-08] MEDS ORDERED: LACTATED RINGERS 1,000 ML IV ONE ×2 (06:53→07:51)
[2022-06-08] MEDS ORDERED: TRIAMCIN/MOXIFLOX OPHTHALMIC 0.6 ML VIAL IO ONE ×2 (07:01→07:41)
[2022-06-08] MEDS ORDERED: BRIMONIDINE 0.2% OPHTH DROPS 5 ML ONE (07:02)
[2022-06-08] MEDS ORDERED: EPINEPHrine 1 MG/ML AMP ONE (07:02)
[2022-06-08] MEDS ORDERED: TIMOLOL 0.5% OPHTH DROPS ONE (07:02)
[2022-06-08] MEDS ORDERED: BSS/LIDOCAINE/EPINEPHRINE 1 ML VIAL ONE (07:03)
--- NOTE | 2022-06-08 07:21 | ANESTHESIA ---
Pre-Anesthesia VS, & Labs - Diagnosis RIGHT CATARACT - Procedure EXTRACTION OF CATARACT WITH LENS IMPLANT - RIGHT Height: 5 ft 2 in Weight (kg): 75.6 kg Body Mass Index: 30.4 BMI Classification: Obese - NPO >8 hours - Is Patient ?: No - Lab Results Current Lab Results: Laboratory Tests 06/08/22 06:45: POC Whole Bld Glucose 80 Home Medications and Allergies Home Medications: Ambulatory Orders Aspirin [Aspirin Regimen] 81 mg PO DAILY 06/08/22 Atorvastatin Calcium 1 tab ORAL DAILY 06/08/22 Clopidogrel [Plavix] 75 mg ORAL BID 06/08/22 Insulin Glargine,Hum.rec.anlog [Lantus] 20 unit SQ DAILY PM 06/09/15 Lisinopril 20 mg PO DAILY 06/09/15 Metoprolol Tartrate 50 mg PO BID 06/09/15 amLODIPine [Norvasc] 10 mg PO DAILY 06/09/15 gemfibroziL [Lopid] 600 mg PO DAILY 06/09/15 hydroCHLOROthiazide [Hydrochlorothiazide] 12.5 mg PO DAILY 06/09/15 metFORMIN [Glucophage] 1,000 mg PO DAILY 06/09/15 Aspirin [Aspirin Regimen] 81 mg PO DAILY 06/08/22 Atorvastatin Calcium 1 tab ORAL DAILY 06/08/22 Clopidogrel [Plavix] 75 mg ORAL BID 06/08/22 Allergies/Adverse Reactions: Allergies Allergy/AdvReac Type Severity Reaction Status Date / Time hops Allergy Unknown Verified 10/18/20 09:31 Penicillins Allergy Unknown Verified 10/18/20 09:31 Anes History & Medical History - Anesthetic History Anesthesia Complications: reports: No previous complications Family history of Anesthesia Complications: Denies Family history of Malignant Hyperthermia: Denies - Medical History Cardiovascular: reports: Hypertension Pulmonary: reports: None Gastrointestinal: reports: None Urinary: reports: Incontinence 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; AMBULATES WITH WALKER) Musculoskeletal: reports: Osteoarthritis Endocrine/Autoimmune: reports: Type 2 diabetes Blood Disorders: reports: None Skin: reports: None Smoking Status: Never smoker Psychosocial: reports: No issues indicated History of Cancer?: No - Surgical History General: reports: Appendectomy Eyes Ears Nose Throat (EENT): reports: Tonsil/Adenoidectomy Gynecologic: reports: section, Hysterectomy Exam General: Alert, Cooperative Dental: Loose/Frag, Dentures full Upper, Poor dentition Neck Mobility: Normal Mallampati classification: III Thyromental Distance: 4-6 cm Respiratory: Lungs clear, Normal breath sounds, No respiratory distress, No accessory muscle use Mental/Cognitive Status: Alert/Oriented X3 Cognitive Status: Within normal limits Plan Anesthesia Type: MAC Consent for Procedure(s) Verified and Reviewed: Yes Code Status: Attempt Resuscitation ASA classification: 3-Severe systemic disease Is this case an emergency?: No
[2022-06-08] MEDS ORDERED: MIDAZOLAM 2 MG/2 ML VIAL ONE (07:28)
[2022-06-08] MEDS ORDERED: BRIMONIDINE 0.2% OPHTH DROPS 5 ML OPTH ONE (07:39)
[2022-06-08] MEDS ORDERED: BSS/LIDOCAINE/EPINEPHRINE 1 ML SYRINGE IO ONE (07:40)
[2022-06-08] MEDS ORDERED: EPINEPHrine 1 MG/ML AMP IR ONE (07:40)
[2022-06-08] MEDS ORDERED: TIMOLOL 0.5% OPHTH DROPS OPTH ONE (07:40)
[2022-06-08] MEDS ORDERED: PROPARACAINE 0.5% OPHTH DROPS 15 ML EACHEYE ONE (07:41)
[2022-06-08] MEDS ORDERED: VANCOMYCIN OPHTH (TOPICAL) 10 MG/ML SYRINGE TOP ONE (07:41)
--- NOTE | 2022-06-08 07:59 | OPERATIVE REPORT ---
Operative Report - Other Other Information/Narrative: Date of Surgery: 06/08/22 Preop Dx: Visually significant cataract right eye. This was the first cataract surgery. Postop Dx: Same Procedure: Phacoemulsification with posterior chamber intraocular lens implant right eye Surgeon: Dr. Corona Bragg Anesthesia: Monitored anesthesia care Complications: None Operative Indications: This is a 81-year-old F with progressive vision loss in the right eye due to 3+ nuclear sclerotic, 2+ cortical, and vacuolar cataract. Best corrected visual acuity was 20/40 with glare to 20/70 vision in the right eye. Indications for surgery were: - Overall decrease in vision - Difficulty reading - Difficulty seeing words, closed captions, or game scores on TV - Difficulty driving in low light or at night - Difficulty with glare or bright lights in any situation The patient was consented at length concerning the risks and benefits of cataract surgery after which the patient expressed a desire to proceed with surgery. Operative Procedure: The patient was taken into OR#3 and placed under monitored anesthesia care. A surgical time-out was conducted confirming correct patient, correct procedure, and correct surgical site. The patient was given topical anesthesia and then prepped and draped in the usual sterile fashion. The eye was entered at the 6 and 3 oclock positions. Intracameral Shugarcaine was injected into the anterior chamber followed by a dispersive viscoelastic. A continuous-tear curvilinear capsulorhexis was performed. The nucleus was hydrodissected and phacoemulsified. The cortex was evacuated using automated infusion and aspiration. A cohesive viscoelastic was injected into the capsular bag and a 22.5 diopter intraocular lens was inserted into the bag. Infusion and aspiration were used to evacuate the viscoelastic materials from the eye. The wounds were hydrated and the eye inflated to physiologic pressure using balanced salt solution. Approximately 0.25ml of a mixture of triamcinolone and moxifloxacin was injected trans-sclerally into the vitreous in the inferotemporal quadrant using a 30 gauge cannula. An additional 0.55ml of a mixture of triamcinolone and moxifloxacin was injected subconjunctivally in the superior quadrant for infection and inflammation prophylaxis. Wound integrity was checked with Weck-Abbey sponges. The patient was taken from the operating room in good condition and given post-op instructions.
[2022-06-08 08:11] VITALS: BP 113/91
--- NOTE | 2022-06-08 09:01 | ANESTHESIA POST OP EVALUATION ---
Anesthesia Post Eval - Post Anesthesia Eval Vitals: Last Vital Signs Temp 36.3 C L 06/08/22 08:10 Pulse 63 06/08/22 08:10 Resp 12 06/08/22 08:10 BP 113/91 H 06/08/22 08:10 Pulse Ox 98 06/08/22 08:10 O2 Flow Rate CV Function Including HR & BP: Stable Pain Control: Satisfactory Nausea & Vomiting: Negative Mental Status: Baseline Respiratory Status: Airway Patent Hydration Status: Satisfactory Anesthesia Complications: None
== END 2022-06-08 06:02 | disposition home or self-care (01) ==
LOC: SDS 06:01
PROVIDERS: ATTEND Ophthalmology
DX: E11.36 Type 2 diabetes mellitus with diabetic cataract (principal); H25.811 Combined forms of age-related cataract, right eye; I10 Essential (primary) hypertension; E66.9 Obesity, unspecified; Z68.30 Body mass index [BMI] 30.0-30.9, adult; Z79.4 Long term (current) use of insulin; Z79.84 Long term (current) use of oral hypoglycemic drugs
CPT/HCPCS: 66984; A9270; J3490; J7120

== ENCOUNTER 2022-08-03 06:19 | Day surgery (SDC) | payer MEDICARE ==
[2022-08-03] MEDS ORDERED: LACTATED RINGERS 1,000 ML IV ONE (06:27)
[2022-08-03] MEDS ORDERED: TRIAMCIN/MOXIFLOX OPHTHALMIC 0.6 ML VIAL IO ONE ×2 (07:02→07:37)
[2022-08-03] MEDS ORDERED: VANCOMYCIN OPHTH (TOPICAL) 10 MG/ML SYRINGE ONE (07:03)
[2022-08-03] MEDS ORDERED: TIMOLOL 0.5% OPHTH DROPS ONE (07:03)
[2022-08-03] MEDS ORDERED: BRIMONIDINE 0.2% OPHTH DROPS 5 ML ONE (07:03)
[2022-08-03] MEDS ORDERED: EPINEPHrine 1 MG/ML AMP ONE (07:03)
[2022-08-03] MEDS ORDERED: BSS/LIDOCAINE/EPINEPHRINE 1 ML SYRINGE ONE (07:03)
[2022-08-03] MEDS ORDERED: MIDAZOLAM 2 MG/2 ML VIAL ONE (07:09)
--- NOTE | 2022-08-03 07:24 | ANESTHESIA ---
Pre-Anesthesia VS, & Labs - Diagnosis combined senile cataract - Procedure left cataract extraction with intraocular lens implant Vital Signs: Temp Pulse Resp BP Pulse Ox O2 Flow Rate 36.5 C 65 16 141/66 H 99 0 08/03/22 06:46 08/03/22 06:46 08/03/22 06:46 08/03/22 06:46 08/03/22 06:46 08/03/22 06:46 Height: 5 ft 2 in Weight (kg): 77 kg Body Mass Index: 31.0 BMI Classification: Obese - NPO >8 hours - Is Patient ?: No - Lab Results Current Lab Results: Laboratory Tests 08/03/22 06:51: POC Whole Bld Glucose 73 Home Medications and Allergies Insulin Glargine,Hum.rec.anlog [Lantus] 20 unit SQ DAILY PM 06/09/15 Lisinopril 20 mg PO DAILY 06/09/15 Metoprolol Tartrate 50 mg PO BID 06/09/15 amLODIPine [Norvasc] 10 mg PO DAILY 06/09/15 gemfibroziL [Lopid] 600 mg PO DAILY 06/09/15 hydroCHLOROthiazide [Hydrochlorothiazide] 12.5 mg PO DAILY 06/09/15 metFORMIN [Glucophage] 1,000 mg PO DAILY 06/09/15 Aspirin [Aspirin Regimen] 81 mg PO DAILY 06/08/22 Atorvastatin Calcium 1 tab ORAL DAILY 06/08/22 Clopidogrel [Plavix] 75 mg ORAL BID 06/08/22 Allergies/Adverse Reactions: Allergies Allergy/AdvReac Type Severity Reaction Status Date / Time hops Allergy Unknown Verified 10/18/20 09:31 Penicillins Allergy Unknown Verified 10/18/20 09:31 Anes History & Medical History - Anesthetic History Anesthesia Complications: reports: No previous complications - Medical History Cardiovascular: reports: Hypertension Pulmonary: reports: None Gastrointestinal: reports: None Urinary: reports: Incontinence 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; AMBULATES WITH WALKER) Musculoskeletal: reports: Osteoarthritis Endocrine/Autoimmune: reports: Type 2 diabetes Blood Disorders: reports: None Skin: reports: None Smoking Status: Never smoker - Surgical History General: reports: Appendectomy Eyes Ears Nose Throat (EENT): reports: Cataracts, Tonsil/Adenoidectomy Gynecologic: reports: section, Hysterectomy Exam General: Alert, Oriented x3 Dental: WNL, Dentures full Upper, Poor dentition Mouth Opening: Greater than 4 Fingerbreadths Neck Mobility: Normal Mallampati classification: III Thyromental Distance: greater than 6 cm Respiratory: Lungs clear Cardiovascular: Regular rate, Normal S1, Normal S2 Plan Anesthesia Type: MAC Consent for Procedure(s) Verified and Reviewed: Yes Code Status: Attempt Resuscitation ASA classification: 3-Severe systemic disease Is this case an emergency?: No
[2022-08-03] MEDS ORDERED: EPINEPHrine 1 MG/ML AMP IR ONE (07:36)
[2022-08-03] MEDS ORDERED: BRIMONIDINE 0.2% OPHTH DROPS 5 ML OPTH ONE (07:36)
[2022-08-03] MEDS ORDERED: BSS/LIDOCAINE/EPINEPHRINE 1 ML SYRINGE IO ONE (07:36)
[2022-08-03] MEDS ORDERED: TIMOLOL 0.5% OPHTH DROPS OPTH ONE (07:36)
[2022-08-03] MEDS ORDERED: VANCOMYCIN OPHTH (TOPICAL) 10 MG/ML SYRINGE TOP ONE (07:37)
[2022-08-03] MEDS ORDERED: PROPARACAINE 0.5% OPHTH DROPS 15 ML EACHEYE ONE (07:37)
[2022-08-03] MEDS ORDERED: LACTATED RINGERS 700 ML IV ONE (07:53)
--- NOTE | 2022-08-03 07:57 | OPERATIVE REPORT ---
Operative Report - Other Other Information/Narrative: Date of Surgery: 08/03/22 Preop Dx: Visually significant cataract left eye. Cataract surgery was performed in the right eye on . Postop Dx: Same Procedure: Phacoemulsification with posterior chamber intraocular lens implant left eye Surgeon: Dr. Corona Bragg Anesthesia: Monitored anesthesia care Complications: None Operative Indications: This is a 81-year-old F with progressive vision loss in the left eye due to 3-4+ nuclear sclerotic and vacuolar cataract. Best corrected visual acuity was 20/30 with glare to 20/50 vision in the left eye. Indications for surgery were: - Difficulty seeing words, closed captions, or game scores on TV - Difficulty driving in low light or at night - Difficulty driving at night because of headlights from other vehicles - Difficulty with glare or bright lights in any situation The patient was consented at length concerning the risks and benefits of cataract surgery after which the patient expressed a desire to proceed with surgery. Operative Procedure: The patient was taken into OR#3 and placed under monitored anesthesia care. A surgical time-out was conducted confirming correct patient, correct procedure, and correct surgical site. The patient was given topical anesthesia and then prepped and draped in the usual sterile fashion. The eye was entered at the 6 and 3 oclock positions. Intracameral Shugarcaine was injected into the anterior chamber followed by a dispersive viscoelastic. A continuous-tear curvilinear capsulorhexis was performed. The nucleus was hydrodissected and phacoemulsified. The cortex was evacuated using automated infusion and aspiration. A cohesive viscoelastic was injected into the capsular bag and a 23.0 diopter intraocular lens was inserted into the bag. Infusion and aspiration were used to evacuate the viscoelastic materials from the eye. The wounds were hydrated and the eye inflated to physiologic pressure using balanced salt solution. Approximately 0.25ml of a mixture of triamcinolone and moxifloxacin was injected trans-sclerally into the vitreous in the inferotemporal quadrant using a 30 gauge cannula. An additional 0.55ml of a mixture of triamcinolone and moxifloxacin was injected subconjunctivally in the superior quadrant for infection and inflammation prophylaxis. Wound integrity was checked with Weck-Abbey sponges. The patient was taken from the operating room in good condition and given post-op instructions.
--- NOTE | 2022-08-03 08:03 | ANESTHESIA POST OP EVALUATION ---
Anesthesia Post Eval - Post Anesthesia Eval Vitals: Last Vital Signs Temp 36.7 C 08/03/22 07:49 Pulse 65 08/03/22 07:49 Resp 16 08/03/22 07:49 BP 132/63 H 08/03/22 07:49 Pulse Ox 97 08/03/22 07:49 O2 Flow Rate 0 08/03/22 06:46 CV Function Including HR & BP: Stable Pain Control: Satisfactory Nausea & Vomiting: Negative Mental Status: Baseline Respiratory Status: Airway Patent Hydration Status: Satisfactory Anesthesia Complications: None
[2022-08-03 08:08] VITALS: BP 133/70
== END 2022-08-03 06:20 | disposition home or self-care (01) ==
LOC: SDS 06:19
PROVIDERS: ATTEND Ophthalmology
DX: E11.36 Type 2 diabetes mellitus with diabetic cataract (principal); H25.812 Combined forms of age-related cataract, left eye; Z98.41 Cataract extraction status, right eye; E66.9 Obesity, unspecified; Z68.31 Body mass index [BMI] 31.0-31.9, adult; I69.351 Hemiplegia and hemiparesis following cerebral infarction affecting right dominant side; I10 Essential (primary) hypertension
CPT/HCPCS: 66984; A9270; J3490; J7120

== ENCOUNTER 2022-09-28 16:49 | Outpatient (CLI) | payer MEDICARE ==
--- NOTE | 2022-09-28 17:38 | Ultrasound Report ---
PROCEDURE: Duplex Ext Veins Left INDICATIONS: PAIN LEFT LEG TECHNIQUE: Real-time imaging, as well as color and pulse Doppler interrogation, were performed of the lower extr emity deep veins from the inguinal ligament to the popliteal fossa. COMPARISON: None. FINDINGS: The deep veins are normally compressible, and free of intraluminal thrombus. Color and pu lse Doppler demonstrate normal phasic intraluminal flow. There is normal augmentation response to di stal compression maneuver. There is edema limiting evaluation of the calf veins. IMPRESSION: Negative for DVT. Reviewed by: Julius Aly MD on 09/28/2022 5:36 PM PDT Approved by: Julius Aly MD on 09/28/2022 5:36 PM PDT Station ID: [id number]
--- NOTE | 2022-09-28 18:09 | XRAY Report ---
PROCEDURE: Hip w/Pelvis 2-3V LT INDICATIONS: PX IN LEFT HIP TECHNIQUE: AP pelvis with lateral view(s) of the left hip(s). COMPARISON: None. FINDINGS: Bones: No fractures or dislocations. Pelvic ring appears intact. No suspicious bony lesions. Mild bilateral acetabular joint space narrowing Soft tissues: The visualized bowel gas pattern is normal. No suspicious soft tissue calcifications. IMPRESSION: No evidence of fracture or dislocation. Reviewed by: Mitch Munson MD on 09/28/2022 5:08 PM LEIA Approved by: Mitch Munson MD on 09/28/2022 5:08 PM [facility] Station ID: [id number]
== END 2022-09-28 16:50 | disposition home or self-care (01) ==
LOC: DI 16:49
PROVIDERS: ATTEND Internal Medicine
DX: M25.552 Pain in left hip (principal); M79.605 Pain in left leg

== ENCOUNTER 2022-12-12 09:52 | Outpatient (CLI) | payer MEDICARE ==
[2022-12-12 10:17] LABS: BASOPHILS % (AUTO) 0.5 %; EOSINOPHILS # (AUTO) 0.1 10^3/uL (0.0-0.7); EOSINOPHILS % (AUTO) 1.1 %; HCT - HEMATOCRIT 41.1 % (37.0-47.0); HGB - HEMOGLOBIN 13.4 g/dL (12.0-16.0); LYMPHOCYTES % (AUTO) 23.9 %; MEAN CORPUSCULAR HEMOGLOBIN 31.7 pg (27.0-31.0); MEAN CORPUSCULAR HGB CONC 32.6 g/dL (32.0-36.0); MEAN CORPUSCULAR VOLUME 97.2 fL (81.0-99.0); MEAN PLATELET VOLUME 11.4 fL (7.9-10.8); MONOCYTES # (AUTO) 0.5 10^3/uL (0.0-1.0); MONOCYTES % (AUTO) 6.4 %; NEUTROPHILS # (AUTO) 5.7 10^3/uL (1.5-6.6); NEUTROPHILS % (AUTO) 67.7 %; PLT - PLATELET COUNT 234 10^3/uL (130-450); RED BLOOD COUNT 4.23 10^6/uL (4.20-5.40); RED CELL DISTRIBUTION WIDTH 12.7 % (12.0-15.0); WHITE BLOOD COUNT 8.3 x10^3/uL (4.8-10.8)
[2022-12-12 10:29] LABS: ALBUMIN 3.1 g/dL (3.2-5.5); ALBUMIN/GLOBULIN RATIO 0.6 (1.0-2.2); ALKALINE PHOSPHATASE 93 IU/L (42-121); ALT ALANINE AMINOTRANSFERASE 24 IU/L (10-60); AST ASPARTATE AMINOTRANSFERASE 26 IU/L (10-42); BILIRUBIN,TOTAL 0.5 mg/dL (0.2-1.0); BUN - BLOOD UREA NITROGEN 30 mg/dL (6-20); CALCIUM 8.7 mg/dL (8.5-10.3); CARBON DIOXIDE - CO2 26 mmol/L (21-32); CHLORIDE 102 mmol/L (101-111); CHOLESTEROL 118 mg/dL; CREATININE 1.2 mg/dL (0.4-1.0); GFR - MDRD 43 (>89); GLUCOSE 116 mg/dL (70-100); HDL CHOLESTEROL 40 mg/dL; LDL CHOLESTEROL,CALCULATED 58 mg/dL; LDL/HDL RATIO 1.5 (<4.4); POTASSIUM 2.9 mmol/L (3.5-5.0); SODIUM 140 mmol/L (135-145); TOTAL PROTEIN 8.6 g/dL (6.7-8.2); TRIGLYCERIDES 101 mg/dL; URIC ACID 6.7 mg/dL (2.6-7.2); VLDL CHOLESTEROL 20 mg/dL
[2022-12-12 10:41] LABS: THYROID STIMULATING HORMONE 2.2 uIU/mL (0.34-5.60)
[2022-12-12 11:58] LABS: ESTIMATED AVERAGE GLUCOSE 212 mg/dL (70-100)
[2022-12-12 18:10] LABS: MICROALBUM/CREATININE RATIO,UR 39.5 ug/mg (<30.0)
== END 2022-12-12 09:53 | disposition home or self-care (01) ==
LOC: LAB 09:52
PROVIDERS: ATTEND Internal Medicine
DX: I10 Essential (primary) hypertension (principal); E11.9 Type 2 diabetes mellitus without complications; M10.9 Gout, unspecified; E78.5 Hyperlipidemia, unspecified; I63.9 Cerebral infarction, unspecified; Z79.899 Other long term (current) drug therapy
CPT/HCPCS: 36415; 80053; 80061; 82043; 82570; 82607; 83036; 83721; 84443; 84550; 85025

== ENCOUNTER 2023-09-29 18:03 | Outpatient (CLI) | payer MEDICARE | END 2023-09-29 23:59 | disposition critical access hospital (66) | LOC: EMS 18:03 | DX: R51.9 Headache, unspecified (principal); M25.521 Pain in right elbow; M25.421 Effusion, right elbow; S50.311A Abrasion of right elbow, initial encounter; W18.39XA Other fall on same level, initial encounter; Y93.01 Activity, walking, marching and hiking; Y92.481 Parking lot as the place of occurrence of the external cause; Z79.02 Long term (current) use of antithrombotics/antiplatelets | CPT/HCPCS: A0425; A0429 ==

== ENCOUNTER 2023-09-29 18:21 | Emergency (ER) | payer MEDICARE ==
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
[2023-09-29 19:03] LABS: BASOPHILS % (AUTO) 0.4 %; EOSINOPHILS % (AUTO) 0.4 %; HCT - HEMATOCRIT 36.1 % (37.0-47.0); HGB - HEMOGLOBIN 11.4 g/dL (12.0-16.0); LYMPHOCYTES # (AUTO) 1.3 10^3/uL (1.5-3.5); LYMPHOCYTES % (AUTO) 16.1 %; MEAN CORPUSCULAR HEMOGLOBIN 31.9 pg (27.0-31.0); MEAN CORPUSCULAR HGB CONC 31.6 g/dL (32.0-36.0); MEAN CORPUSCULAR VOLUME 101.1 fL (81.0-99.0); MEAN PLATELET VOLUME 11.4 fL (7.9-10.8); MONOCYTES # (AUTO) 0.6 10^3/uL (0.0-1.0); MONOCYTES % (AUTO) 7.1 %; NEUTROPHILS % (AUTO) 75.2 %; PLT - PLATELET COUNT 184 10^3/uL (130-450); RED BLOOD COUNT 3.57 10^6/uL (4.20-5.40); RED CELL DISTRIBUTION WIDTH 12.7 % (12.0-15.0); WHITE BLOOD COUNT 7.9 x10^3/uL (4.8-10.8)
--- NOTE | 2023-09-29 19:08 | CT Report ---
PROCEDURE: Head WO INDICATIONS: fall, pain TECHNIQUE: Noncontrast 4.5 mm thick angled axial sections acquired from the foramen magnum to the vertex. For r adiation dose reduction, the following was used: automated exposure control, adjustment of mA and/or kV according to patient size. COMPARISON: 10/18/2020. Correlation is made with the accompanying imaging. FINDINGS: Image quality: Excellent. CSF spaces: Basal cisterns are patent. No extra-axial fluid collections. There is mild narrowing of the left lateral ventricle. Brain: There is moderate left-sided subdural hemorrhage, measuring up to 12 mm in thickness. Associa valdo mass effect can be seen upon the left cerebral hemisphere. There is 5 mm midline shift. There is also subdural hemorrhage seen along the left falx and the left tentorium. Areas of subarachn oid and parenchymal hemorrhage can be seen involving both frontal lobes anteriorly. Subarachnoid hemo rrhage is also seen involving the left temporal lobe anteriorly. Skull and face: Calvarium and visualized facial bones are intact, without suspicious lesions. Sinuses: Visualized sinuses and mastoids are clear. IMPRESSION: Extensive areas of hemorrhage are seen, including left-sided subdural hemorrhage, with associated mid line shift of 5 mm. Additional areas of subdural, subarachnoid, and parenchymal hemorrhage can be see n. Note: Case discussed by telephone with Dr. Muller at 7:04 PM [place] time on 09/29/2023. Reviewed by: Renan Lo MD on 09/29/2023 6:06 PM LEAI Approved by: Renan Lo MD on 09/29/2023 6:06 PM LEIA Station ID: [id number]
--- NOTE | 2023-09-29 19:09 | CT Report ---
PROCEDURE: Cervical Spine WO INDICATIONS: fall, pain TECHNIQUE: Noncontrast 3 mm thick sections acquired from the skull base to the T4 level. Sagittal and coronal r eformats were then constructed. For radiation dose reduction, the following was used: automated exp osure control, adjustment of mA and/or kV according to patient size. COMPARISON: 10/09/2018. Correlation is made with the accompanying imaging. FINDINGS: Image quality: This study is limited by quantum mottle artifact. Bones: No fractures or dislocations. Visualized superior ribs are intact. Focal degenerative change can be seen involving the C1-C2 interface anteriorly. There is at least mod erate disc space narrowing seen at C5-C6 and C6-C7. Prominent posterior directed endplate osteophytes can be seen at the C5-C6 level. Multiple levels of facet hypertrophy can be seen. Soft tissues: Prevertebral soft tissues are normal in thickness. No paravertebral hematomas. No ap ical pneumothoraces. Atherosclerotic calcification is seen. IMPRESSION: Negative for acute fracture or traumatic subluxation. Underlying degenerative changes are seen, which are worst at the C5-C6 level. Reviewed by: Renan Lo MD on 09/29/2023 6:08 PM LEIA Approved by: Renan Lo MD on 09/29/2023 6:08 PM LEIA Station ID: [id number]
[2023-09-29 19:20] LABS: PARTIAL THROMBOPLASTIN TIME 27.8 secs (24.9-33.3)
[2023-09-29 19:24] LABS: INR 1.2 (0.8-1.2); PT - PROTHROMBIN TIME 13.1 secs (9.9-12.6)
[2023-09-29 19:29] LABS: ALBUMIN 3.1 g/dL (3.2-5.5); ALBUMIN/GLOBULIN RATIO 0.8 (1.0-2.2); BILIRUBIN,TOTAL 0.5 mg/dL (0.2-1.0); CALCIUM 8.6 mg/dL (8.5-10.3); POTASSIUM 3.6 mmol/L (3.5-4.5); TOTAL PROTEIN 7.2 g/dL (6.4-8.9)
[2023-09-29] MEDS: LORazepam 2 MG/ML VIAL IVP STA (19:35)
[2023-09-29] MEDS ORDERED: ONDANSETRON 4 MG/2 ML VIAL ONE (19:44)
[2023-09-29 19:45] VITALS: BP 160/74; O2SAT 92
--- NOTE | 2023-09-29 19:48 | XRAY Report ---
PROCEDURE: Elbow 3+V RT INDICATIONS: fall, pain TECHNIQUE: 3 views of the elbow were acquired. COMPARISON: Correlation is made with the accompanying imaging. FINDINGS: Bones: No fractures or dislocations. No suspicious bony lesions. Age-appropriate degenerative allen es are seen. Soft tissues: Soft tissue injury can be seen involving the olecranon, with swelling and subcutaneous gas. Overlying bandaging material can be seen. IMPRESSION: Soft tissue injury of the olecranon, yet without an accompanying fracture identified on these plain f ilms. Reviewed by: Renan Lo MD on 09/29/2023 6:47 PM LEIA Approved by: Renan Lo MD on 09/29/2023 6:47 PM LEIA Station ID: [id number]
[2023-09-29] MEDS: ONDANSETRON 4 MG/2 ML VIAL IVP STA (19:53)
== END 2023-09-29 19:58 | disposition short-term general hospital (02) ==
LOC: EDBD → EDUNIT# → ED 18:21
DX: S06.5XAA Traumatic subdural hemorrhage with loss of consciousness status unknown, initial encounter (principal); W19.XXXA Unspecified fall, initial encounter; Y92.481 Parking lot as the place of occurrence of the external cause; Z79.01 Long term (current) use of anticoagulants; E11.9 Type 2 diabetes mellitus without complications; Z79.4 Long term (current) use of insulin
CPT/HCPCS: 36415; 70450; 72125; 73080; 80053; 85025; 85610; 85730; 96374; 96375; 99285; J2060